=== PATIENT | male | born 1975 | race Caucasian/White ===

== ENCOUNTER 2018-07-23 13:38 | Emergency (ER) | payer MEDICAID, SELFPAY ==
[~2018-07-23] VITALS: Ht 188 cm; Wt 95.3 kg
[2018-07-23 13:48] VITALS: BP 130/90
== END 2018-07-23 14:13 | disposition home or self-care (01) ==
LOC: ED 14:08
DX: I10 Essential (primary) hypertension (principal); Z76.0 Encounter for issue of repeat prescription; Z87.891 Personal history of nicotine dependence
CPT/HCPCS: 99283

== ENCOUNTER 2018-08-30 18:27 | Emergency (ER) | payer MEDICAID, OTHER ==
[~2018-08-30] VITALS: Ht 188 cm; Wt 97.2 kg
[2018-08-30 18:28] VITALS: BP 136/85
--- NOTE | 2018-08-30 18:45 | NUR ---
pt here for bp medication refill.
== END 2018-08-30 19:16 | disposition home or self-care (01) ==
LOC: ED 19:04
DX: M62.838 Other muscle spasm (principal); I10 Essential (primary) hypertension; Z76.0 Encounter for issue of repeat prescription
CPT/HCPCS: 99283

== ENCOUNTER 2018-11-03 15:58 | Emergency (ER) | payer MEDICAID ==
[~2018-11-03] VITALS: Ht 188 cm; Wt 96.6 kg
[2018-11-03 16:20] VITALS: BP 148/95
== END 2018-11-03 21:00 | disposition home or self-care (01) ==
LOC: ED 20:19
DX: S29.012A Strain of muscle and tendon of back wall of thorax, initial encounter (principal); X58.XXXA Exposure to other specified factors, initial encounter; Y93.89 Activity, other specified; Y92.89 Other specified places as the place of occurrence of the external cause; Y99.8 Other external cause status; I10 Essential (primary) hypertension
CPT/HCPCS: 36415; 71046; 80053; 84443; 85025; 93005; 99284